=== PATIENT | female | born 1955 | race Caucasian/White ===

== ENCOUNTER 2016-09-28 10:21 | Day surgery (SDC) | payer BC ==
[~2016-09-28] VITALS: Ht 165.1 cm; Wt 86.0 kg
[~2016-09-28 10:21] MED LIST: ALLEGRA ALLERG180 MG PO; AMBIEN10 MG PO; CIPRO500 MG PO; CYANOCOBALAM1000 MCG PO; GLUCOPHAGE850 MG PO; HERCEPTIN10 MG/0.47 IV; LEVAQUIN750 MG PO; LIPITOR20 MG PO; LO-DOSE ASPIRIN81 M1 PO; SLEEP AID25 M2 PO; SYNTHROID25 MCG PO; TRANSDERM-SCO1 PATCH TD; TYLENOL EXTRA500 MG PO; VITAMIN D2000 UNIT PO; XANAX0.5 MG PO; ZESTRIL10 MG PO; [UNRECOGNIZED DRUG - OTHER] IV
[2016-09-28] MEDS ORDERED: ARIMIDEX1 MG PO (10:54)
[2016-09-28 11:01] LABS: POINT-OF-CARE METER ID UU14174212
[2016-09-28 11:06] VITALS: BP 152/70
[2016-09-28 14:13] LABS: POINT-OF-CARE METER ID UU13113675
[2016-09-28 15:50] VITALS: BP 139/65
== END 2016-09-28 17:30 | disposition home or self-care (01) ==
LOC: SDC 10:21
PROVIDERS: Surgery Plastic and Reconstructive Surgery
DX: Z45.811 Encounter for adjustment or removal of right breast implant (principal); Z85.3 Personal history of malignant neoplasm of breast; Z90.11 Acquired absence of right breast and nipple; E11.9 Type 2 diabetes mellitus without complications; Z79.84 Long term (current) use of oral hypoglycemic drugs; I10 Essential (primary) hypertension; E03.9 Hypothyroidism, unspecified; Z79.82 Long term (current) use of aspirin; J32.9 Chronic sinusitis, unspecified; Z79.811 Long term (current) use of aromatase inhibitors; Z88.2 Allergy status to sulfonamides; Z80.8 Family history of malignant neoplasm of other organs or systems; Z92.21 Personal history of antineoplastic chemotherapy
CPT/HCPCS: 82948; C1789; J0330; J0690; J2250; J2405; J3010

== ENCOUNTER → 2017-02-16 | Outpatient (CLI) | payer BC ==
[~2017-02-16] MED LIST changes: +ARIMIDEX1 MG PO
== END | disposition home or self-care (01) ==
LOC: AMB 08:15
DX: Z45.2 Encounter for adjustment and management of vascular access device (principal); I87.8 Other specified disorders of veins; Z92.21 Personal history of antineoplastic chemotherapy